=== PATIENT | male | born 1980 | race Caucasian/White ===

== ENCOUNTER 2017-07-03 16:11 | Inpatient (IN) | payer OTHER ==
[2017-07-03 17:16] VITALS: BMI 26.2
--- NOTE | 2017-07-03 20:26 | HP ---
CIWA Score - CIWA Score Nausea/Vomitin (vomiting x 3) Muscle Tremors: 4-Moderate,w/Arms Extend Anxiety: 4-Mod. Anxious/Guarded Agitation: 1-Slight > Activity Paroxysmal Sweats: No Perspiration Orientation: 1-Uncertain about Date Tacttile Disturbances: 0-None Auditory Disturbances: 0-None Visual Disturbances: 0-None Headache: 3-Moderate CIWA-Ar Total Score: 16 Admission ROS S - HPI Chief Complaint: Alcohol withdrawal symptoms Allergies/Adverse Reactions: Allergies Allergy/AdvReac Type Severity Reaction Status Date / Time No Known Allergies Allergy Verified 03/31/16 20:41 History of Present Illness: 36 years old male with a long history of alcohol dependence is seeking admission to detox. Patient has been to previous detox and reports a year of sobriety. Hr has medical history of gastritis, pancreatitis, arthritis and depression. He denies suicide attempt and suicidal ideation at this time. Exam Limitations: No Limitations - Ebola screening Have you traveled outside of the country in the last 21 days: No Have you had contact with anyone from an Ebola affected area: No Have you been sick,other than usual withdrawal symptoms: No Do you have a fever: No - Review of Systems Constitutional: Chills, Malaise, Night Sweats, Changes in sleep EENT: reports: Nose Congestion, Other (left eye blindness) Respiratory: reports: No Symptoms reported Cardiac: reports: No Symptoms Reported GI: reports: Diarrhea (x 8), Nausea, Poor Fluid Intake, Vomiting (x 3), Abdominal cramping : reports: No Symptoms Reported Musculoskeletal: reports: Back Pain, Muscle Pain, Muscle Weakness Integumentary: reports: Flushing Neuro: reports: Tingling, Tremors, Weakness Endocrine: reports: Flushing Hematology: reports: No Symptoms Reported Psychiatric: reports: Anxious Other Systems: Reviewed and Negative Patient History - Patient Medical History Hx Anemia: No Hx Asthma: No Hx Chronic Obstructive Pulmonary Disease (COPD): No Hx Cancer: No Hx Cardiac Disorders: No Hx Congestive Heart Failure: No Hx Hypertension: No HX Cerebrovascular Accident: No Hx Seizures: No Hx Diabetes: No Hx Gastrointestinal Disorders: Yes (pancreatitis, gartritits) Hx Liver Disease: No Hx Genitourinary Disorders: No Hx Sexually Transmitted Disorders: No Hx Renal Disease (ESRD): No Hx Thyroid Disease: No Hx Human Immunodeficiency Virus (HIV): No (Negative 2017) Hx Hepatitis C: No Hx Depression: Yes Hx Suicide Attempt: No (Denies suicidal and homicidal ideation at this time) Hx Bipolar Disorder: No Hx Schizophrenia: No Other Medical History: arthritis - hands, legs - Patient Surgical History Past Surgical History: No - PPD History Previous Implant?: Yes Documented Results: Negative w/o proof Implanted On Prior R Admission?: No PPD to be Administered?: Yes - Reproductive History Patient is a Female of Child Bearing Age (11 -55 yrs old): No (MALE) - Smoking Cessation Smoking history: Current every day smoker Have you smoked in the past 12 months: Yes Aproximately how many cigarettes per day: 6 Cigars Per Day: 0 Hx Chewing Tobacco Use: No Initiated information on smoking cessation: Yes 'Breaking Loose' booklet given: 07/03/17 - Substance & Tx. History Hx Alcohol Use: Yes Hx Substance Use: No Substance Use Type: Alcohol Hx Substance Use Treatment: Yes ([facility]) - Substances Abused Alcohol Route: Oral Frequency: Daily Amount used: 20 x 24oz. BEER Age of first use: 16 Date of Last Use: 07/03/17 Family Disease History - Family Disease History Family Disease History: Diabetes: Mother, CA: Father (Stomach - ), Other : Grandparent (grandfather-liver cirrhosis - ) Admission Physical Exam S - Vital Signs Vital Signs: Vital Signs - 24 hr 07/03/17 17:14 Temperature 98.9 F Pulse Rate 115 H Respiratory 18 Rate Blood Pressure 139/100 - Physical General Appearance: Yes: Moderate Distress, Tremorous, Irritable, Sweating, Anxious HEENTM: Yes: Nasal Congestion (left ear hearing loss), Other (left eye blindness ) Respiratory: Yes: Lungs Clear, Normal Breath Sounds, No Respiratory Distress Neck: Yes: Supple Breast: Yes: Breast Exam Deferred Cardiology: Yes: Regular Rhythm, Regular Rate Abdominal: Yes: Normal Bowel Sounds, Soft Genitourinary: Yes: Within Normal Limits Musculoskeletal: Yes: Back pain, Muscle Pain, Muscle weakness Extremities: Yes: Tremors Neurological: Yes: Alert, Normal Mood/Affect Integumentary: Yes: Dry Lymphatic: Yes: Within Normal Limits - Diagnostic (1) Gastritis Current Visit: Yes Status: Chronic Qualifiers: Chronicity: unspecified (2) Depression Current Visit: Yes Status: Chronic Qualifiers: Depression Type: unspecified Qualified Code(s): F32.9 - Major depressive disorder, single episode, unspecified (3) Pancreatitis Current Visit: Yes Status: Chronic Qualifiers: Chronicity: acute Pancreatitis type: alcohol induced (4) Alcohol dependence with uncomplicated withdrawal Current Visit: Yes Status: Chronic (5) Nicotine dependence Current Visit: Yes Status: Chronic Cleared for Admission [facility] - Detox or Rehab [facility] Level of Care: Medically Managed Detox Regimen/Protocol: Librium [facility] Breath Alcohol Content Breath Alcohol Content: 0.477 Urine Drug Screen - Results Drug Screen Negative: No Urine Drug Screen Results: BZO-Benzodiazepines
[2017-07-03] MEDS ORDERED: chlordiazePOXIDE HCL 25 MG CAPSULE PO PRN (21:47)
[2017-07-03] MEDS ORDERED: ACETAMINOPHEN 325 MG TABLET (FP) PO PRN (21:47)
[2017-07-03] MEDS ORDERED: guaiFENesin/D-METHORPHAN HB 10 ML UNIT-DOSE CUPS PO PRN (21:47)
[2017-07-03] MEDS ORDERED: MAGNESIUM CITRATE 300 ML BOTTLE PO PRN (21:47)
[2017-07-03] MEDS ORDERED: IBUPROFEN 400 MG TABLET (FP) PO PRN (21:47)
[2017-07-03] MEDS ORDERED: NICOTINE POLACRILEX 2 MG GUM BC PRN (21:47)
[2017-07-03] MEDS ORDERED: MENTHOL/PHENOL 1 EACH UD MM PRN (21:47)
[2017-07-03] MEDS ORDERED: P-EPHED 60MG/TRIPROLIDI 2.5MG TABLET PO PRN (21:47)
[2017-07-03] MEDS ORDERED: LOPERAMIDE HCL 2 MG CAPSULE PO PRN (21:47)
[2017-07-03] MEDS ORDERED: MAG HYDROX/AL HYDROX/SIMETH 30 ML UNIT-DOSE CUP PO PRN (21:47)
[2017-07-03] MEDS ORDERED: MAGNESIUM HYDROX 2400MG/30ML ORAL SUSPENSION 30 ML CUP PO PRN (21:47)
[2017-07-03] MEDS ORDERED: MELATONIN 5 MG TABLETS PO PRN (22:00)
[2017-07-03] MEDS: THIAMINE HCL 100 MG TABLET (FP) PO SCH (22:03)
[2017-07-03] MEDS: chlordiazePOXIDE HCL 25 MG CAPSULE PO SCH (22:03)
[2017-07-04 02:01] LABS: URINE APPEARANCE CLEAR; URINE BILIRUBIN NEGATIVE (<2.0 mg/dL); URINE BLOOD 1+ (NEGATIVE); URINE COLOR COLORLESS; URINE GLUCOSE (UA) NEGATIVE (NEGATIVE); URINE KETONE NEGATIVE (NEGATIVE); URINE LEUK ESTERASE NEGATIVE (NEGATIVE); URINE NITRITE NEGATIVE (NEGATIVE); URINE UROBILINOGEN NEGATIVE mg/dL (0.2-1.0)
[2017-07-04 02:09] LABS: URINE PROTEIN 1+ (NEGATIVE)
[2017-07-04 03:11] LABS: EPI CELLS FEW /HPF (FEW)
[2017-07-04 03:12] LABS: URINE MUCUS RARE
[2017-07-04] MEDS: chlordiazePOXIDE HCL 25 MG CAPSULE PO SCH ×5 (06:05→22:29)
[2017-07-04 10:11] LABS: HEMATOCRIT 43.4 % (35.4-49); HEMOGLOBIN 14.7 GM/dL (11.7-16.9); MCHC 33.9 g/dl (32.0-35.9); MEAN CELL VOLUME 97.5 fl (80-96); PLATELET COUNT 253 K/MM3 (134-434); RBC 4.45 M/mm3 (4.00-5.60); RDW 14.5 % (11.9-15.9); WHITE BLOOD COUNT 2.5 K/mm3 (4.0-10.0)
[2017-07-04] MEDS: NICOTINE 14 MG/24 HOURS TOPICAL PATCH TD SCH (10:14)
[2017-07-04] MEDS: PRENATAL VITAMINS W/ FOLIC ACID TABLET (FP) PO SCH (10:14)
[2017-07-04 10:19] LABS: ANION GAP 9 (8-16); BILIRUBIN,TOTAL 0.3 mg/dL (0.2-1.0); BLOOD UREA NITROGEN 7 mg/dL (7-18); CALCIUM 8.2 mg/dL (8.5-10.1); CHLORIDE 102 mmol/L (98-107); CO2 28 mmol/L (21-32); CREATININE 0.8 mg/dL (0.7-1.3); GLUCOSE,RANDOM 108 mg/dL (74-106); POTASSIUM 3.6 mmol/L (3.5-5.1); SGOT/AST 123 U/L (15-37); SGPT/ALT 77 U/L (12-78); SODIUM 139 mmol/L (136-145); TOT PROT 7.3 g/dl (6.4-8.2)
[2017-07-04 10:20] LABS: ALK PHOS 93 U/L (45-117)
[2017-07-04] MEDS ORDERED: ONDANSETRON *ODT* 4 MG TABLET SL PRN (10:56)
--- NOTE | 2017-07-04 10:56 | PN ---
S CIWA - CIWA Score Nausea/Vomitin Muscle Tremors: 3 Anxiety: 3 Agitation: 2 Paroxysmal Sweats: 3 Orientation: 4Disoriented Place/Person Tacttile Disturbances: 1-Very Mild Itch/Numbness Auditory Disturbances: 0-None Visual Disturbances: 0-None Headache: 0-None Present CIWA-Ar Total Score: 19 BHS Progress Note (SOAP) Subjective: Nausea, Diarrhea, Sweating, Stomach Cramping, Tremors, Interrupted Sleep, Anxious. Objective: PATIENT A & O X 2 (UNCERTAIN ABOUT CURRENT LOCATION), OBSERVED AMBULATING ON UNIT. NO ACUTE DISTRESS. 07/04/17 10:58 Vital Signs Temperature 96.1 F L 07/04/17 09:22 Pulse Rate 98 H 07/04/17 09:30 Respiratory Rate 22 07/04/17 09:30 Blood Pressure 104/65 07/04/17 09:22 O2 Sat by Pulse Oximetry (%) Laboratory Tests 07/03/17 07/04/17 07/04/17 22:00 07:00 07:00 WBC 2.5 L D RBC 4.45 Hgb 14.7 Hct 43.4 MCV 97.5 H MCH 33.0 MCHC 33.9 RDW 14.5 Plt Count 253 MPV 7.0 L Sodium 139 Potassium 3.6 Chloride 102 Carbon Dioxide 28 Anion Gap 9 BUN 7 Creatinine 0.8 Creat Clearance w eGFR > 60 Random Glucose 108 H D Calcium 8.2 L Total Bilirubin 0.3 D AST 123 H D ALT 77 D Alkaline Phosphatase 93 D Total Protein 7.3 Albumin 4.0 Urine Color Colorless Urine Appearance Clear Urine pH 6.0 Ur Specific [place] 1.004 Urine Protein 1+ H Urine Glucose (UA) Negative Urine Ketones Negative Urine Blood 1+ H Urine Nitrite Negative Urine Bilirubin Negative Urine Urobilinogen Negative Ur Leukocyte Esterase Negative Urine WBC (Auto) 0 Urine RBC (Auto) 3-5 Ur Epithelial Cells Few Urine Mucus Rare LABS NOTED. RPR, HIV AB RESULTS PENDING. 07/04/17 11:00 Assessment: 07/04/17 10:59 WITHDRAWAL SYMPTOMS. Plan: CONTINUE DETOX. INCREASE DAILY PO FLUID INTAKE.
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
--- NOTE | 2017-07-04 16:49 | EKG ---
Test Reason : Blood Pressure : / mmHG Vent. Rate : 095 BPM Atrial Rate : 095 BPM P-R Int : 164 ms QRS Dur : 092 ms QT Int : 350 ms P-R-T Axes : 063 072 041 degrees QTc Int : 439 ms NORMAL SINUS RHYTHM NORMAL ECG WHEN COMPARED WITH ECG OF 01-APR-2016 04:18, NO SIGNIFICANT CHANGE WAS FOUND Confirmed by MD Florentino Edward ([id number]) on 07/04/2017 4:49:20 PM Referred By: Confirmed By:Reid Florentino MD
[2017-07-04] MEDS: THIAMINE HCL 100 MG TABLET (FP) PO SCH (22:29)
[2017-07-04] MEDS: traZODone HCL 50 MG TABLET (FP) PO SCH (22:30)
[2017-07-05] MEDS: chlordiazePOXIDE HCL 25 MG CAPSULE PO SCH ×3 (05:12→17:27)
[2017-07-05] MEDS: PRENATAL VITAMINS W/ FOLIC ACID TABLET (FP) PO SCH (10:21)
[2017-07-05] MEDS: NICOTINE 14 MG/24 HOURS TOPICAL PATCH TD SCH (10:21)
[2017-07-05] MEDS ORDERED: CYCLOBENZAPRINE HCL 10 MG TABLET (FP) PO PRN (10:25)
--- NOTE | 2017-07-05 10:33 | PN ---
[facility] CIWA - CIWA Score Nausea/Vomitin-No Nausea/No Vomiting Muscle Tremors: 4-Moderate,w/Arms Extend Anxiety: 3 Agitation: 1-Slight > Activity Paroxysmal Sweats: 3 Orientation: 0-Oriented Tacttile Disturbances: 2-Mild Itch/Numbness/Burn Auditory Disturbances: 0-None Visual Disturbances: 2-Mild Sensitivity Headache: 0-None Present CIWA-Ar Total Score: 15 S Progress Note (SOAP) Subjective: Body Aches, Tremors, Fatigue, H/A, Anxious. Objective: PATIENT A & O X 3, OBSERVED AMBULATING ON UNIT. NO ACUTE DISTRESS. 07/05/17 10:29 Vital Signs Temperature 98.5 F 07/05/17 09:22 Pulse Rate 101 H 07/05/17 09:22 Respiratory Rate 20 07/05/17 09:22 Blood Pressure 118/77 07/05/17 09:22 O2 Sat by Pulse Oximetry (%) Laboratory Tests 07/03/17 07/04/17 07/04/17 22:00 07:00 07:00 WBC 2.5 L D RBC 4.45 Hgb 14.7 Hct 43.4 MCV 97.5 H MCH 33.0 MCHC 33.9 RDW 14.5 Plt Count 253 MPV 7.0 L Sodium Potassium Chloride Carbon Dioxide Anion Gap BUN Creatinine Creat Clearance w eGFR Random Glucose Calcium Total Bilirubin AST ALT Alkaline Phosphatase Total Protein Albumin Urine Color Colorless Urine Appearance Clear Urine pH 6.0 Ur Specific [place] 1.004 Urine Protein 1+ H Urine Glucose (UA) Negative Urine Ketones Negative Urine Blood 1+ H Urine Nitrite Negative Urine Bilirubin Negative Urine Urobilinogen Negative Ur Leukocyte Esterase Negative Urine WBC (Auto) 0 Urine RBC (Auto) 3-5 Ur Epithelial Cells Few Urine Mucus Rare RPR Titer HIV 1&2 Antibody Screen Negative HIV P24 Antigen Negative 07/04/17 07/04/17 07:00 07:00 WBC RBC Hgb Hct MCV MCH MCHC RDW Plt Count MPV Sodium 139 Potassium 3.6 Chloride 102 Carbon Dioxide 28 Anion Gap 9 BUN 7 Creatinine 0.8 Creat Clearance w eGFR > 60 Random Glucose 108 H D Calcium 8.2 L Total Bilirubin 0.3 D AST 123 H D ALT 77 D Alkaline Phosphatase 93 D Total Protein 7.3 Albumin 4.0 Urine Color Urine Appearance Urine pH Ur Specific [place] Urine Protein Urine Glucose (UA) Urine Ketones Urine Blood Urine Nitrite Urine Bilirubin Urine Urobilinogen Ur Leukocyte Esterase Urine WBC (Auto) Urine RBC (Auto) Ur Epithelial Cells Urine Mucus RPR Titer Nonreactive HIV 1&2 Antibody Screen HIV P24 Antigen LABS NOTED. Assessment: 07/05/17 10:30 WITHDRAWAL SYMPTOMS. Plan: CONTINUE DETOX. PRN FLEXERIL FOR BODY ACHES / MUSCLE SPASMS. INCREASE DAILY PO FLUID INTAKE.
[2017-07-05] MEDS: traZODone HCL 50 MG TABLET (FP) PO SCH (22:26)
[2017-07-05] MEDS: THIAMINE HCL 100 MG TABLET (FP) PO SCH (22:26)
[2017-07-05] MEDS: chlordiazePOXIDE 5 MG CAPSULE PO SCH (22:27)
[2017-07-06] MEDS: chlordiazePOXIDE 5 MG CAPSULE PO SCH ×3 (05:13→17:18)
[2017-07-06] MEDS: PRENATAL VITAMINS W/ FOLIC ACID TABLET (FP) PO SCH (10:15)
[2017-07-06] MEDS: NICOTINE 14 MG/24 HOURS TOPICAL PATCH TD SCH (10:16)
--- NOTE | 2017-07-06 16:48 | PN ---
B[facility] Progress Note (SOAP) Subjective: Diarrhea, Fatigue, Tremors, Anxious. Objective: PATIENT A & O X 3. NO ACUTE DISTRESS. 07/06/17 16:46 Vital Signs Temperature 96.8 F L 07/06/17 13:25 Pulse Rate 116 H 07/06/17 13:25 Respiratory Rate 20 07/06/17 13:25 Blood Pressure 141/84 07/06/17 13:25 O2 Sat by Pulse Oximetry (%) Laboratory Tests 07/03/17 07/04/17 07/04/17 22:00 07:00 07:00 WBC 2.5 L D RBC 4.45 Hgb 14.7 Hct 43.4 MCV 97.5 H MCH 33.0 MCHC 33.9 RDW 14.5 Plt Count 253 MPV 7.0 L Sodium Potassium Chloride Carbon Dioxide Anion Gap BUN Creatinine Creat Clearance w eGFR Random Glucose Calcium Total Bilirubin AST ALT Alkaline Phosphatase Total Protein Albumin Urine Color Colorless Urine Appearance Clear Urine pH 6.0 Ur Specific [place] 1.004 Urine Protein 1+ H Urine Glucose (UA) Negative Urine Ketones Negative Urine Blood 1+ H Urine Nitrite Negative Urine Bilirubin Negative Urine Urobilinogen Negative Ur Leukocyte Esterase Negative Urine WBC (Auto) 0 Urine RBC (Auto) 3-5 Ur Epithelial Cells Few Urine Mucus Rare RPR Titer HIV 1&2 Antibody Screen Negative HIV P24 Antigen Negative 07/04/17 07/04/17 07:00 07:00 WBC RBC Hgb Hct MCV MCH MCHC RDW Plt Count MPV Sodium 139 Potassium 3.6 Chloride 102 Carbon Dioxide 28 Anion Gap 9 BUN 7 Creatinine 0.8 Creat Clearance w eGFR > 60 Random Glucose 108 H D Calcium 8.2 L Total Bilirubin 0.3 D AST 123 H D ALT 77 D Alkaline Phosphatase 93 D Total Protein 7.3 Albumin 4.0 Urine Color Urine Appearance Urine pH Ur Specific [place] Urine Protein Urine Glucose (UA) Urine Ketones Urine Blood Urine Nitrite Urine Bilirubin Urine Urobilinogen Ur Leukocyte Esterase Urine WBC (Auto) Urine RBC (Auto) Ur Epithelial Cells Urine Mucus RPR Titer Nonreactive HIV 1&2 Antibody Screen HIV P24 Antigen LABS NOTED. Assessment: 07/06/17 16:46 WITHDRAWAL SYMPTOMS. Plan: CONTINUE DETOX. PRN IMMODIUM FOR DIARRHEA. INCREASE DAILY PO FLUID INTAKE.
[2017-07-06] MEDS ORDERED: cloNIDine HCL 0.1 MG TABLET PO SCH ×2 (17:42→22:00)
[2017-07-06] MEDS: traZODone HCL 50 MG TABLET (FP) PO SCH (22:38)
[2017-07-06] MEDS: THIAMINE HCL 100 MG TABLET (FP) PO SCH (22:39)
[2017-07-06] MEDS: chlordiazePOXIDE HCL 10 MG CAPSULE PO SCH (22:39)
[2017-07-07] MEDS: chlordiazePOXIDE HCL 10 MG CAPSULE PO SCH (05:23)
[2017-07-07 09:17] VITALS: BP 144/94; PULSE 97; TEMP 96.4
--- NOTE | 2017-07-07 16:10 | PN ---
S Progress Note (SOAP) Subjective: Patient denies current detox symptoms and reports that he feels well overall. Objective: PATIENT A & O X 3, OBSERVED AMBULATING ON UNIT. NO ACUTE DISTRESS. 07/07/17 16:05 Vital Signs Temperature 96.4 F L 07/07/17 09:15 Pulse Rate 97 H 07/07/17 09:15 Respiratory Rate 20 07/07/17 09:15 Blood Pressure 144/94 07/07/17 09:15 O2 Sat by Pulse Oximetry (%) Laboratory Tests 07/03/17 07/04/17 07/04/17 22:00 07:00 07:00 WBC 2.5 L D RBC 4.45 Hgb 14.7 Hct 43.4 MCV 97.5 H MCH 33.0 MCHC 33.9 RDW 14.5 Plt Count 253 MPV 7.0 L Sodium Potassium Chloride Carbon Dioxide Anion Gap BUN Creatinine Creat Clearance w eGFR Random Glucose Calcium Total Bilirubin AST ALT Alkaline Phosphatase Total Protein Albumin Urine Color Colorless Urine Appearance Clear Urine pH 6.0 Ur Specific [place] 1.004 Urine Protein 1+ H Urine Glucose (UA) Negative Urine Ketones Negative Urine Blood 1+ H Urine Nitrite Negative Urine Bilirubin Negative Urine Urobilinogen Negative Ur Leukocyte Esterase Negative Urine WBC (Auto) 0 Urine RBC (Auto) 3-5 Ur Epithelial Cells Few Urine Mucus Rare RPR Titer HIV 1&2 Antibody Screen Negative HIV P24 Antigen Negative 07/04/17 07/04/17 07:00 07:00 WBC RBC Hgb Hct MCV MCH MCHC RDW Plt Count MPV Sodium 139 Potassium 3.6 Chloride 102 Carbon Dioxide 28 Anion Gap 9 BUN 7 Creatinine 0.8 Creat Clearance w eGFR > 60 Random Glucose 108 H D Calcium 8.2 L Total Bilirubin 0.3 D AST 123 H D ALT 77 D Alkaline Phosphatase 93 D Total Protein 7.3 Albumin 4.0 Urine Color Urine Appearance Urine pH Ur Specific [place] Urine Protein Urine Glucose (UA) Urine Ketones Urine Blood Urine Nitrite Urine Bilirubin Urine Urobilinogen Ur Leukocyte Esterase Urine WBC (Auto) Urine RBC (Auto) Ur Epithelial Cells Urine Mucus RPR Titer Nonreactive HIV 1&2 Antibody Screen HIV P24 Antigen LABS NOTED. Assessment: 07/07/17 16:06 COMPLETION OF DETOX REGIMEN. Plan: PATIENT SCHEDULED FOR DISCHARGE FROM DETOX TODAY. PATIENT SCHEDULED TO GO [facility] ([place] FOR AFTERCARE.
--- NOTE | 2017-07-07 16:16 | DS ---
[facility] Detox Discharge Summary Admission Date: 07/03/17 Discharge Date: 07/07/17 - History Present History: Alcohol Dependence Additional Comments: PATIENT GOING TO [facility] ([place] FOR AFTERCARE. PATIENT WAS DISCHARGED FROM DETOX UNIT IN STABLE MEDICAL CONDITION. Pertinent Past History: History of Gastritis, History of Pancreatitis, Nicotine Dependence, Insomnia, Depression. - Physical Exam Results Vital Signs: Vital Signs Temperature 96.4 F L 07/07/17 09:15 Pulse Rate 97 H 07/07/17 09:15 Respiratory Rate 20 07/07/17 09:15 Blood Pressure 144/94 07/07/17 09:15 O2 Sat by Pulse Oximetry (%) Pertinent Admission Physical Exam Findings: WITHDRAWAL SYMPTOMS. Laboratory Tests 07/03/17 07/04/17 07/04/17 22:00 07:00 07:00 WBC 2.5 L D RBC 4.45 Hgb 14.7 Hct 43.4 MCV 97.5 H MCH 33.0 MCHC 33.9 RDW 14.5 Plt Count 253 MPV 7.0 L Sodium Potassium Chloride Carbon Dioxide Anion Gap BUN Creatinine Creat Clearance w eGFR Random Glucose Calcium Total Bilirubin AST ALT Alkaline Phosphatase Total Protein Albumin Urine Color Colorless Urine Appearance Clear Urine pH 6.0 Ur Specific [place] 1.004 Urine Protein 1+ H Urine Glucose (UA) Negative Urine Ketones Negative Urine Blood 1+ H Urine Nitrite Negative Urine Bilirubin Negative Urine Urobilinogen Negative Ur Leukocyte Esterase Negative Urine WBC (Auto) 0 Urine RBC (Auto) 3-5 Ur Epithelial Cells Few Urine Mucus Rare RPR Titer HIV 1&2 Antibody Screen Negative HIV P24 Antigen Negative 07/04/17 07/04/17 07:00 07:00 WBC RBC Hgb Hct MCV MCH MCHC RDW Plt Count MPV Sodium 139 Potassium 3.6 Chloride 102 Carbon Dioxide 28 Anion Gap 9 BUN 7 Creatinine 0.8 Creat Clearance w eGFR > 60 Random Glucose 108 H D Calcium 8.2 L Total Bilirubin 0.3 D AST 123 H D ALT 77 D Alkaline Phosphatase 93 D Total Protein 7.3 Albumin 4.0 Urine Color Urine Appearance Urine pH Ur Specific [place] Urine Protein Urine Glucose (UA) Urine Ketones Urine Blood Urine Nitrite Urine Bilirubin Urine Urobilinogen Ur Leukocyte Esterase Urine WBC (Auto) Urine RBC (Auto) Ur Epithelial Cells Urine Mucus RPR Titer Nonreactive HIV 1&2 Antibody Screen HIV P24 Antigen LABS NOTED. - Treatment Hospital Course: Detox Protocol Followed, Detoxed Safely, Responded well, Discharged Condition Good Patient has Accepted a Rehab Referral to: PT. GOING TO [facility] ([place] FOR AFTERCARE. - Medication Discharge Medications: Ambulatory Orders NK [No Known Home Medication] 03/31/16 - Diagnosis (1) Alcohol dependence with uncomplicated withdrawal Status: Acute (2) Gastritis Status: Chronic Qualifiers: Gastritis type: unspecified gastritis Chronicity: unspecified Gastritis bleeding: presence of bleeding unspecified Qualified Code(s): K29.70 - Gastritis, unspecified, without bleeding (3) Pancreatitis Status: Chronic Qualifiers: Chronicity: acute Pancreatitis type: alcohol induced Acute pancreatitis complication: unspecified Qualified Code(s): K85.20 - Alcohol induced acute pancreatitis without necrosis or infection (4) Depression Status: Chronic Qualifiers: Depression Type: unspecified Qualified Code(s): F32.9 - Major depressive disorder, single episode, unspecified (5) Insomnia Status: Acute Qualifiers: Insomnia type: unspecified Qualified Code(s): G47.00 - Insomnia, unspecified (6) Nicotine dependence Status: Acute Qualifiers: Nicotine product type: cigarettes Substance use status: uncomplicated Qualified Code(s): F17.210 - Nicotine dependence, cigarettes, uncomplicated - AMA Did Patient Leave Against Medical Advice: No
== END 2017-07-07 09:16 | disposition home or self-care (01) | DRG 775 ==
LOC: YASAS 16:11 → Y3N 17:59
PROVIDERS: ADMIT Internal Medicine; ATTEND Internal Medicine
PROC: HZ2ZZZZ Detoxification Services for Substance Abuse Treatment (ICD-10-PCS; principal; 2017-07-03)
DX: F10.230 Alcohol dependence with withdrawal, uncomplicated (principal); F17.210 Nicotine dependence, cigarettes, uncomplicated; F32.9 Major depressive disorder, single episode, unspecified; G47.00 Insomnia, unspecified; K85.20 Alcohol induced acute pancreatitis without necrosis or infection; K29.70 Gastritis, unspecified, without bleeding; Z59.0 Homelessness
CPT/HCPCS: 36415; 80053; 81003; 81015; 85027; 86593; 87389; 93005; 93010; Q0162

== ENCOUNTER 2018-08-27 08:21 | Inpatient (IN) | payer OTHER ==
[2018-08-27 09:47] VITALS: BMI 27.6
--- NOTE | 2018-08-27 10:28 | HP ---
CIWA Score Nausea/Vomitin Muscle Tremors: 2 Anxiety: 2 Agitation: 2 Paroxysmal Sweats: 1-Minimal Palms Moist Orientation: 0-Oriented Tacttile Disturbances: 1-Very Mild Itch/Numbness Auditory Disturbances: 1-Very Mild Visual Disturbances: 0-None Headache: 2-Mild CIWA-Ar Total Score: 13 - Admission Criteria OASAS Guidelines: Admission for Medically Managed Detox: Requires at least one of the followin. CIWA greater than 12 2. Seizures within the past 24 hours 3. Delirium tremens within the past 24 hours 4. Hallucinations within the past 24 hours 5. Acute intervention needed for co occurring medical disorder 6. Acute intervention needed for co occurring psychiatric disorder 7. Severe withdrawal that cannot be handled at a lower level of care (continued vomiting, continued diarrhea, abnormal vital signs) requiring intravenous medication and/or fluids 8. Admission ROS [facility] - HPI Chief Complaint: i need help to stop drinking alcohol Allergies/Adverse Reactions: Allergies Allergy/AdvReac Type Severity Reaction Status Date / Time No Known Allergies Allergy Verified 03/31/16 20:41 History of Present Illness: this 38 years old male with alcohol dependence,seeking detox,withdrawal symptom, [facility], history of pancreatitis in the past last detox Pw 07/03/17 to 07/07/17 low back pain longest sobriety 4 months plan for out patient program after detox blindness left eye post trauma since 12/14 - Ebola screening Have you traveled outside of the country in the last 21 days: No (N) Have you had contact with anyone from an Ebola affected area: No Do you have a fever: No - Review of Systems Constitutional: Loss of Appetite, Malaise, Night Sweats, Changes in sleep, Weakness EENT: reports: Nose Congestion, Other (blindnes sof left eye post trauma since 12/24) Respiratory: reports: No Symptoms reported Cardiac: reports: No Symptoms Reported GI: reports: Diarrhea, Nausea, Vomiting, Abdominal cramping : reports: No Symptoms Reported Musculoskeletal: reports: Back Pain, Muscle Pain Integumentary: reports: Dryness Neuro: reports: Headache, Tremors Endocrine: reports: No Symptoms Reported Hematology: reports: No Symptoms Reported Psychiatric: reports: No Sypmtoms Reported, Judgement Intact, Mood/Affect Appropiate, Orientated x3 Other Systems: Reviewed and Negative Patient History - Patient Medical History Hx Anemia: No Hx Asthma: No Hx Chronic Obstructive Pulmonary Disease (COPD): No Hx Cancer: No Hx Cardiac Disorders: No Hx Congestive Heart Failure: No Hx Hypertension: No HX Cerebrovascular Accident: No Hx Seizures: No Hx Diabetes: No Hx Gastrointestinal Disorders: Yes (pancreatitis, gartritits) Hx Liver Disease: No Hx Genitourinary Disorders: No Hx Sexually Transmitted Disorders: No Hx Renal Disease (ESRD): No Hx Thyroid Disease: No Hx Human Immunodeficiency Virus (HIV): No (04/28 negative ) Hx Hepatitis C: No Hx Depression: Yes Hx Suicide Attempt: No (Denies suicidal and homicidal ideation at this time) Hx Bipolar Disorder: No Hx Schizophrenia: No Other Medical History: no suicidal,no homicidal - Patient Surgical History Past Surgical History: No - PPD History Previous Implant?: Yes Documented Results: Negative w/o proof Implanted On Prior [facility] Admission?: Yes Date: 07/05/17 PPD to be Administered?: Yes - Smoking Cessation Smoking history: Current every day smoker Have you smoked in the past 12 months: No Aproximately how many cigarettes per day: 6 If you are a former smoker, when did you quit?: 2016 Cigars Per Day: 0 Hx Chewing Tobacco Use: No Initiated information on smoking cessation: Yes 'Breaking Loose' booklet given: 08/27/18 - Substance & Tx. History Hx Alcohol Use: Yes Hx Substance Use: No Substance Use Type: Alcohol Hx Substance Use Treatment: Yes - Substances abused Alcohol Substance route: Oral Frequency: Daily Amount used: 10-12 beers of 24 OZS Age of first use: 16 Date of last use: 08/27/18 Family Disease History - Family Disease History Family Disease History: Diabetes: Mother, CA: Father (Stomach - ), Other : Grandparent (grandfather-liver cirrhosis - ) Admission Physical Exam BHS - Vital Signs Vital Signs: Vital Signs - 24 hr 08/27/18 08/27/18 09:20 10:14 Temperature 97.3 F L 97.3 F L Pulse Rate 85 85 Respiratory 18 18 Rate Blood Pressure 128/74 128/74 - Physical General Appearance: Yes: Moderate Distress, Tremorous, Irritable, Sweating, Anxious HEENTM: Yes: Normal ENT Inspection, JEFRY, Pharynx Normal Respiratory: Yes: Lungs Clear, Normal Breath Sounds, No Respiratory Distress Neck: Yes: Within Normal Limits, Supple, Trachea in good position Breast: Yes: Within Normal Limits Cardiology: Yes: Within Normal Limits, Regular Rhythm, Regular Rate, S1, S2 Abdominal: Yes: Within Normal Limits, Normal Bowel Sounds, Non Tender, Flat, Soft Genitourinary: Yes: Within Normal Limits Back: Yes: Within Normal Limits Musculoskeletal: Yes: full range of Motion, Back pain, Muscle Pain Extremities: Yes: Tremors Neurological: Yes: Within Normal Limits, graphite grinder II-XII NML intact, Fully Oriented, Alert, Motor Strength 5/5 Integumentary: Yes: Clammy Lymphatic: Yes: Within Normal Limits - Diagnostic (1) Alcohol dependence with uncomplicated withdrawal Current Visit: No Status: Acute (2) History of pancreatitis Current Visit: Yes Status: Acute (3) Gastritis Current Visit: No Status: Chronic Qualifiers: Gastritis type: unspecified gastritis Chronicity: unspecified Gastritis bleeding: presence of bleeding unspecified Qualified Code(s): K29.70 - Gastritis, unspecified, without bleeding (4) Arthritis Current Visit: Yes Status: Acute (5) Low back pain Current Visit: Yes Status: Acute Cleared for Admission [facility] - Detox or Rehab [facility] Level of Care: Medically Managed Detox Regimen/Protocol: Librium Breathalyzer - Breathalyzer Breathalyzer: 0 Urine Drug Screen - Test Device Lot number: [id number] Expiration date: 05/10/20 - Control Is test valid?: Yes - Results Drug screen NEGATIVE: No Urine drug screen results: MOP-Opiates, BZO-Benzodiazepines Inpatient Rehab Admission - Rehab Decision to Admit Inpatient rehab admission?: No
[2018-08-27] MEDS ORDERED: BISMUTH SUBSALICYLATE 262 MG/15 ML BTL PO PRN (10:41)
[2018-08-27] MEDS ORDERED: MAGNESIUM HYDROX 2400MG/30ML ORAL SUSPENSION 30 ML CUP PO PRN (10:41)
[2018-08-27] MEDS ORDERED: hydrOXYzine PAMOATE 25 MG CAPSULE (FP) PO PRN (10:41)
[2018-08-27] MEDS ORDERED: chlordiazePOXIDE HCL 25 MG CAPSULE PO PRN (10:41)
[2018-08-27] MEDS ORDERED: ACETAMINOPHEN 325 MG TABLET (FP) PO PRN ×2 (10:41)
[2018-08-27] MEDS ORDERED: MENTHOL/PHENOL 1 EACH UD MM PRN (10:41)
[2018-08-27] MEDS ORDERED: MAGNESIUM CITRATE 300 ML BOTTLE PO PRN (10:41)
[2018-08-27 14:47] LABS: HEMATOCRIT 43.7 % (35.4-49); HEMOGLOBIN 14.5 GM/dL (11.7-16.9); MCH 30.7 pg (25.7-33.7); MCHC 33.3 g/dl (32.0-35.9); MEAN CELL VOLUME 92.2 fl (80-96); MEAN PLT VOLUME 7.6 fl (7.5-11.1); PLATELET COUNT 261 K/MM3 (134-434); RBC 4.74 M/mm3 (4.00-5.60); RDW 14.2 % (11.9-15.9); WHITE BLOOD COUNT 9.2 K/mm3 (4.0-10.0)
[2018-08-27 15:04] LABS: BILIRUBIN,TOTAL 1.2 mg/dL (0.2-1); CALCIUM 8.7 mg/dL (8.5-10.1); CREATININE 1.1 mg/dL (0.55-1.3); POTASSIUM 4.4 mmol/L (3.5-5.1); TOT PROT 7.4 g/dl (6.4-8.2)
[2018-08-27] MEDS: chlordiazePOXIDE HCL 25 MG CAPSULE PO SCH ×2 (17:44→22:10)
[2018-08-27 18:14] LABS: EPI CELLS 0.3 /HPF (0-5/HPF); HYALINE CASTS 1 /lpf (0-8); PH,URINE 6.5 (5.0-8.0); URINE APPEARANCE CLEAR; URINE BACTERIA 1.5 /hpf (NEGATIVE); URINE BILIRUBIN NEGATIVE (NEGATIVE); URINE COLOR YELLOW; URINE GLUCOSE (UA) NEGATIVE (NEGATIVE); URINE KETONE NEGATIVE (NEGATIVE); URINE LEUK ESTERASE NEGATIVE (NEGATIVE); URINE NITRITE NEGATIVE (NEGATIVE); URINE PROTEIN 2+ (NEGATIVE); URINE RBC 1 /hpf (0-4); URINE UROBILINOGEN 0.2 mg/dL (0.2-1.0); URINE WBC 1 /hpf (0-5)
--- NOTE | 2018-08-27 21:16 | PN ---
BHS Progress Note Note: pt noted to have high BP this ludivina: 160/99. Pt getting librium for alcohol detox protocol. Vital Signs - 24 hr 08/27/18 08/27/18 08/27/18 09:20 10:14 13:18 Temperature 97.3 F L 97.3 F L 97.3 F L Pulse Rate 85 85 70 Respiratory 18 18 18 Rate Blood Pressure 128/74 128/74 129/85 08/27/18 08/27/18 17:47 21:09 Temperature 98.9 F Pulse Rate 77 Respiratory 18 Rate Blood Pressure 127/87 161/99 BP has been good in previously. Will place a prn Clonidine order for withdrawal Sx, anxiety
[2018-08-27] MEDS ORDERED: cloNIDine HCL 0.1 MG TABLET PO PRN (21:17)
[2018-08-27] MEDS: RANITIDINE HCL 150 MG TABLET (FP) PO SCH (22:10)
[2018-08-27] MEDS: THIAMINE HCL 100 MG TABLET (FP) PO SCH (22:10)
[2018-08-27] MEDS: MELATONIN 5 MG TABLETS PO PRN (22:13)
[2018-08-28] MEDS: chlordiazePOXIDE HCL 25 MG CAPSULE PO SCH ×2 (05:47→10:22)
[2018-08-28] MEDS: METHOCARBAMOL 500 MG TABLET PO PRN (05:48)
[2018-08-28] MEDS: MAG HYDROX/AL HYDROX/SIMETH 30 ML UNIT-DOSE CUP PO PRN ×2 (06:03→23:54)
[2018-08-28] MEDS: RANITIDINE HCL 150 MG TABLET (FP) PO SCH ×2 (10:19→22:15)
[2018-08-28] MEDS: PRENATAL VITAMINS W/ FOLIC ACID TABLET (FP) PO SCH (10:23)
[2018-08-28] MEDS ORDERED: cloNIDine HCL 0.1 MG TABLET PO PRN (10:39)
--- NOTE | 2018-08-28 10:41 | PN ---
[facility] CIWA - CIWA Score Nausea/Vomitin-Mild Nausea/No Vomiting Muscle Tremors: 3 Anxiety: 3 Agitation: 2 Paroxysmal Sweats: 1-Minimal Palms Moist Orientation: 1-Uncertain about Date Tacttile Disturbances: 0-None Auditory Disturbances: 0-None Visual Disturbances: 0-None Headache: 1-Very Mild CIWA-Ar Total Score: 12 S Progress Note (SOAP) Subjective: long history of hypertension treated with amlodipine order amlodipine 5 mg po bid clonidine 0.1 mg po prn for bp elevation Objective: 08/28/18 10:39 Vital Signs Temperature 98.4 F 08/28/18 09:13 Pulse Rate 76 08/28/18 09:13 Respiratory Rate 18 08/28/18 09:13 Blood Pressure 123/77 08/28/18 09:13 O2 Sat by Pulse Oximetry (%) Laboratory Last Values WBC 9.2 K/mm3 (4.0-10.0) 08/27/18 10:30 RBC 4.74 M/mm3 (4.00-5.60) 08/27/18 10:30 Hgb 14.5 GM/dL (11.7-16.9) 08/27/18 10:30 Hct 43.7 % (35.4-49) 08/27/18 10:30 MCV 92.2 fl (80-96) 08/27/18 10:30 MCH 30.7 pg (25.7-33.7) 08/27/18 10:30 MCHC 33.3 g/dl (32.0-35.9) 08/27/18 10:30 RDW 14.2 % (11.9-15.9) 08/27/18 10:30 Plt Count 261 K/MM3 (134-434) 08/27/18 10:30 MPV 7.6 fl (7.5-11.1) 08/27/18 10:30 Sodium 136 mmol/L (136-145) 08/27/18 10:30 Potassium 4.4 mmol/L (3.5-5.1) 08/27/18 10:30 Chloride 102 mmol/L (98-107) 08/27/18 10:30 Carbon Dioxide 24 mmol/L (21-32) 08/27/18 10:30 Anion Gap 9 MMOL/L (8-16) 08/27/18 10:30 BUN 16 mg/dL (7-18) 08/27/18 10:30 Creatinine 1.1 mg/dL (0.55-1.3) 08/27/18 10:30 Est GFR (CKD-EPI)AfAm 99.57 08/27/18 10:30 Est GFR (CKD-EPI)NonAf 85.91 08/27/18 10:30 Random Glucose 106 mg/dL (74-106) 08/27/18 10:30 Calcium 8.7 mg/dL (8.5-10.1) 08/27/18 10:30 Total Bilirubin 1.2 mg/dL (0.2-1) H 08/27/18 10:30 AST 152 U/L (15-37) H 08/27/18 10:30 ALT 113 U/L (13-61) H 08/27/18 10:30 Alkaline Phosphatase 92 U/L (45-117) 08/27/18 10:30 Total Protein 7.4 g/dl (6.4-8.2) 08/27/18 10:30 Albumin 4.0 g/dl (3.4-5.0) 08/27/18 10:30 Urine Color Yellow 08/27/18 15:28 Urine Appearance Clear 08/27/18 15:28 Urine pH 6.5 (5.0-8.0) 08/27/18 15:28 Ur Specific [place] 1.014 (1.010-1.035) 08/27/18 15:28 Urine Protein 2+ (NEGATIVE) H 08/27/18 15:28 Urine Glucose (UA) Negative (NEGATIVE) 08/27/18 15:28 Urine Ketones Negative (NEGATIVE) 08/27/18 15:28 Urine Blood Negative (NEGATIVE) 08/27/18 15:28 Urine Nitrite Negative (NEGATIVE) 08/27/18 15:28 Urine Bilirubin Negative (NEGATIVE) 08/27/18 15:28 Urine Urobilinogen 0.2 mg/dL (0.2-1.0) 08/27/18 15:28 Ur Leukocyte Esterase Negative (NEGATIVE) 08/27/18 15:28 Urine WBC (Auto) 1 /hpf (0-5) 08/27/18 15:28 Urine RBC (Auto) 1 /hpf (0-4) 08/27/18 15:28 Urine Casts (Auto) 1 /lpf (0-8) 08/27/18 15:28 U Epithel Cells (Auto) 0.3 /HPF (0-5/HPF) 08/27/18 15:28 Urine Bacteria (Auto) 1.5 /hpf (NEGATIVE) 08/27/18 15:28 RPR Titer Nonreactive (NONREACTIVE) 08/27/18 10:30 HIV 1&2 Antibody Screen Negative 08/27/18 10:30 HIV P24 Antigen Negative 08/27/18 10:30 lab noted Assessment: 08/28/18 10:41 alcohol withdrawal sx Plan: continue detox
[2018-08-28] MEDS ORDERED: LORazepam 1 MG TABLET PO PRN (10:57)
[2018-08-28] MEDS: LORazepam 1 MG TABLET PO SCH ×2 (13:27→22:19)
[2018-08-28] MEDS: IBUPROFEN 400 MG TABLET (FP) PO PRN (13:37)
[2018-08-28] MEDS ORDERED: chlordiazePOXIDE HCL 25 MG CAPSULE PO SCH (17:00)
[2018-08-28] MEDS: THIAMINE HCL 100 MG TABLET (FP) PO SCH (22:15)
[2018-08-28] MEDS: amLODIPine BESYLATE 5 MG TABLET (FP) PO SCH (22:16)
[2018-08-28] MEDS: MELATONIN 5 MG TABLETS PO PRN (22:19)
[2018-08-29] MEDS: IBUPROFEN 400 MG TABLET (FP) PO PRN (01:30)
[2018-08-29] MEDS: LORazepam 1 MG TABLET PO SCH ×3 (05:28→17:29)
[2018-08-29] MEDS ORDERED: amLODIPine BESYLATE 10 MG TABLET (FP) PO SCH (10:00)
[2018-08-29] MEDS: amLODIPine BESYLATE 5 MG TABLET (FP) PO SCH ×2 (10:27→22:46)
[2018-08-29] MEDS: PRENATAL VITAMINS W/ FOLIC ACID TABLET (FP) PO SCH (10:27)
[2018-08-29] MEDS: RANITIDINE HCL 150 MG TABLET (FP) PO SCH ×2 (10:27→22:46)
[2018-08-29] MEDS: MAG HYDROX/AL HYDROX/SIMETH 30 ML UNIT-DOSE CUP PO PRN (11:11)
--- NOTE | 2018-08-29 11:19 | PN ---
[facility] CIWA - CIWA Score Nausea/Vomitin-Mild Nausea/No Vomiting Muscle Tremors: 3 Anxiety: 2 Agitation: 2 Paroxysmal Sweats: 1-Minimal Palms Moist Orientation: 0-Oriented Tacttile Disturbances: 0-None Auditory Disturbances: 0-None Visual Disturbances: 0-None Headache: 0-None Present CIWA-Ar Total Score: 9 S Progress Note (SOAP) Subjective: ambulate on hallway from room to day room "to get water myself" steady gait tolerate fluid well Objective: 08/29/18 11:22 Vital Signs Temperature 98.3 F 08/29/18 09:14 Pulse Rate 94 H 08/29/18 09:14 Respiratory Rate 20 08/29/18 09:14 Blood Pressure 138/88 08/29/18 09:14 O2 Sat by Pulse Oximetry (%) Laboratory Last Values WBC 9.2 K/mm3 (4.0-10.0) 08/27/18 10:30 RBC 4.74 M/mm3 (4.00-5.60) 08/27/18 10:30 Hgb 14.5 GM/dL (11.7-16.9) 08/27/18 10:30 Hct 43.7 % (35.4-49) 08/27/18 10:30 MCV 92.2 fl (80-96) 08/27/18 10:30 MCH 30.7 pg (25.7-33.7) 08/27/18 10:30 MCHC 33.3 g/dl (32.0-35.9) 08/27/18 10:30 RDW 14.2 % (11.9-15.9) 08/27/18 10:30 Plt Count 261 K/MM3 (134-434) 08/27/18 10:30 MPV 7.6 fl (7.5-11.1) 08/27/18 10:30 Sodium 136 mmol/L (136-145) 08/27/18 10:30 Potassium 4.4 mmol/L (3.5-5.1) 08/27/18 10:30 Chloride 102 mmol/L (98-107) 08/27/18 10:30 Carbon Dioxide 24 mmol/L (21-32) 08/27/18 10:30 Anion Gap 9 MMOL/L (8-16) 08/27/18 10:30 BUN 16 mg/dL (7-18) 08/27/18 10:30 Creatinine 1.1 mg/dL (0.55-1.3) 08/27/18 10:30 Est GFR (CKD-EPI)AfAm 99.57 08/27/18 10:30 Est GFR (CKD-EPI)NonAf 85.91 08/27/18 10:30 Random Glucose 106 mg/dL (74-106) 08/27/18 10:30 Calcium 8.7 mg/dL (8.5-10.1) 08/27/18 10:30 Total Bilirubin 1.2 mg/dL (0.2-1) H 08/27/18 10:30 AST 152 U/L (15-37) H 08/27/18 10:30 ALT 113 U/L (13-61) H 08/27/18 10:30 Alkaline Phosphatase 92 U/L (45-117) 08/27/18 10:30 Total Protein 7.4 g/dl (6.4-8.2) 08/27/18 10:30 Albumin 4.0 g/dl (3.4-5.0) 08/27/18 10:30 Urine Color Yellow 08/27/18 15:28 Urine Appearance Clear 08/27/18 15:28 Urine pH 6.5 (5.0-8.0) 08/27/18 15:28 Ur Specific [place] 1.014 (1.010-1.035) 08/27/18 15:28 Urine Protein 2+ (NEGATIVE) H 08/27/18 15:28 Urine Glucose (UA) Negative (NEGATIVE) 08/27/18 15:28 Urine Ketones Negative (NEGATIVE) 08/27/18 15:28 Urine Blood Negative (NEGATIVE) 08/27/18 15:28 Urine Nitrite Negative (NEGATIVE) 08/27/18 15:28 Urine Bilirubin Negative (NEGATIVE) 08/27/18 15:28 Urine Urobilinogen 0.2 mg/dL (0.2-1.0) 08/27/18 15:28 Ur Leukocyte Esterase Negative (NEGATIVE) 08/27/18 15:28 Urine WBC (Auto) 1 /hpf (0-5) 08/27/18 15:28 Urine RBC (Auto) 1 /hpf (0-4) 08/27/18 15:28 Urine Casts (Auto) 1 /lpf (0-8) 08/27/18 15:28 U Epithel Cells (Auto) 0.3 /HPF (0-5/HPF) 08/27/18 15:28 Urine Bacteria (Auto) 1.5 /hpf (NEGATIVE) 08/27/18 15:28 RPR Titer Nonreactive (NONREACTIVE) 08/27/18 10:30 HIV 1&2 Antibody Screen Negative 08/27/18 10:30 HIV P24 Antigen Negative 08/27/18 10:30 lab noted ast elevation Assessment: 08/29/18 11:22 withdrawal sx Plan: continue detox
[2018-08-29] MEDS: SUCRALFATE 1 GM TABLET (FP) PO SCH (14:10)
[2018-08-29] MEDS ORDERED: chlordiazePOXIDE HCL 10 MG CAPSULE PO SCH (17:00)
[2018-08-29] MEDS ORDERED: chlordiazePOXIDE HCL 10 MG CAPSULE PO PRN (17:00)
[2018-08-29] MEDS: METHOCARBAMOL 500 MG TABLET PO PRN (17:31)
[2018-08-29] MEDS: THIAMINE HCL 100 MG TABLET (FP) PO SCH (22:46)
[2018-08-29] MEDS: MELATONIN 5 MG TABLETS PO PRN (22:50)
[2018-08-30] MEDS ORDERED: LORazepam 0.5 MG TABLET PO PRN (00:01)
[2018-08-30] MEDS: METHOCARBAMOL 500 MG TABLET PO PRN ×2 (00:03→22:14)
[2018-08-30] MEDS: MAG HYDROX/AL HYDROX/SIMETH 30 ML UNIT-DOSE CUP PO PRN ×2 (01:38→17:42)
[2018-08-30] MEDS ORDERED: IBUPROFEN 400 MG TABLET (FP) PO ONE (01:41)
[2018-08-30] MEDS: LORazepam 0.5 MG TABLET PO SCH ×3 (05:18→17:41)
[2018-08-30] MEDS: RANITIDINE HCL 150 MG TABLET (FP) PO SCH ×2 (10:17→22:13)
[2018-08-30] MEDS: amLODIPine BESYLATE 5 MG TABLET (FP) PO SCH ×2 (10:17→22:13)
[2018-08-30] MEDS: PRENATAL VITAMINS W/ FOLIC ACID TABLET (FP) PO SCH (10:17)
[2018-08-30] MEDS: SUCRALFATE 1 GM TABLET (FP) PO SCH (13:20)
--- NOTE | 2018-08-30 15:31 | PN ---
S CIWA - CIWA Score Nausea/Vomitin-Mild Nausea/No Vomiting Muscle Tremors: 1-None Visible, but [place] Anxiety: 2 Agitation: 1-Slight > Activity Paroxysmal Sweats: No Perspiration Orientation: 0-Oriented Tacttile Disturbances: 0-None Auditory Disturbances: 0-None Visual Disturbances: 0-None Headache: 0-None Present CIWA-Ar Total Score: 5 BHS Progress Note (SOAP) Subjective: feeling better no longer feeling pain after meal discuss risks of alcohol related GI complications Objective: 08/30/18 15:29 Vital Signs Temperature 97.0 F L 08/30/18 14:11 Pulse Rate 95 H 08/30/18 14:11 Respiratory Rate 20 08/30/18 14:11 Blood Pressure 137/90 08/30/18 14:11 O2 Sat by Pulse Oximetry (%) Vital Signs Temperature 97.0 F L 08/30/18 14:11 Pulse Rate 95 H 08/30/18 14:11 Respiratory Rate 20 08/30/18 14:11 Blood Pressure 137/90 08/30/18 14:11 O2 Sat by Pulse Oximetry (%) Laboratory Last Values WBC 9.2 K/mm3 (4.0-10.0) 08/27/18 10:30 RBC 4.74 M/mm3 (4.00-5.60) 08/27/18 10:30 Hgb 14.5 GM/dL (11.7-16.9) 08/27/18 10:30 Hct 43.7 % (35.4-49) 08/27/18 10:30 MCV 92.2 fl (80-96) 08/27/18 10:30 MCH 30.7 pg (25.7-33.7) 08/27/18 10:30 MCHC 33.3 g/dl (32.0-35.9) 08/27/18 10:30 RDW 14.2 % (11.9-15.9) 08/27/18 10:30 Plt Count 261 K/MM3 (134-434) 08/27/18 10:30 MPV 7.6 fl (7.5-11.1) 08/27/18 10:30 Sodium 136 mmol/L (136-145) 08/27/18 10:30 Potassium 4.4 mmol/L (3.5-5.1) 08/27/18 10:30 Chloride 102 mmol/L (98-107) 08/27/18 10:30 Carbon Dioxide 24 mmol/L (21-32) 08/27/18 10:30 Anion Gap 9 MMOL/L (8-16) 08/27/18 10:30 BUN 16 mg/dL (7-18) 08/27/18 10:30 Creatinine 1.1 mg/dL (0.55-1.3) 08/27/18 10:30 Est GFR (CKD-EPI)AfAm 99.57 08/27/18 10:30 Est GFR (CKD-EPI)NonAf 85.91 08/27/18 10:30 Random Glucose 106 mg/dL (74-106) 08/27/18 10:30 Calcium 8.7 mg/dL (8.5-10.1) 08/27/18 10:30 Total Bilirubin 1.2 mg/dL (0.2-1) H 08/27/18 10:30 AST 21 U/L (15-37) 08/30/18 07:55 ALT 113 U/L (13-61) H 08/27/18 10:30 Alkaline Phosphatase 92 U/L (45-117) 08/27/18 10:30 Total Protein 7.4 g/dl (6.4-8.2) 08/27/18 10:30 Albumin 4.0 g/dl (3.4-5.0) 08/27/18 10:30 Urine Color Yellow 08/27/18 15:28 Urine Appearance Clear 08/27/18 15:28 Urine pH 6.5 (5.0-8.0) 08/27/18 15:28 Ur Specific [place] 1.014 (1.010-1.035) 08/27/18 15:28 Urine Protein 2+ (NEGATIVE) H 08/27/18 15:28 Urine Glucose (UA) Negative (NEGATIVE) 08/27/18 15:28 Urine Ketones Negative (NEGATIVE) 08/27/18 15:28 Urine Blood Negative (NEGATIVE) 08/27/18 15:28 Urine Nitrite Negative (NEGATIVE) 08/27/18 15:28 Urine Bilirubin Negative (NEGATIVE) 08/27/18 15:28 Urine Urobilinogen 0.2 mg/dL (0.2-1.0) 08/27/18 15:28 Ur Leukocyte Esterase Negative (NEGATIVE) 08/27/18 15:28 Urine WBC (Auto) 1 /hpf (0-5) 08/27/18 15:28 Urine RBC (Auto) 1 /hpf (0-4) 08/27/18 15:28 Urine Casts (Auto) 1 /lpf (0-8) 08/27/18 15:28 U Epithel Cells (Auto) 0.3 /HPF (0-5/HPF) 08/27/18 15:28 Urine Bacteria (Auto) 1.5 /hpf (NEGATIVE) 08/27/18 15:28 RPR Titer Nonreactive (NONREACTIVE) 08/27/18 10:30 HIV 1&2 Antibody Screen Negative 08/27/18 10:30 HIV P24 Antigen Negative 08/27/18 10:30 lab noted Assessment: 08/30/18 15:31 alcohol withdrawal sx Plan: continue detox
[2018-08-30] MEDS ORDERED: chlordiazePOXIDE HCL 10 MG CAPSULE PO SCH (17:00)
[2018-08-30] MEDS: THIAMINE HCL 100 MG TABLET (FP) PO SCH (22:13)
[2018-08-30] MEDS: MELATONIN 5 MG TABLETS PO PRN (22:14)
[2018-08-31] MEDS: MAG HYDROX/AL HYDROX/SIMETH 30 ML UNIT-DOSE CUP PO PRN (01:46)
[2018-08-31] MEDS ORDERED: LORazepam 0.5 MG TABLET PO ONE (06:00)
[2018-08-31 06:23] VITALS: BP 109/67; PULSE 72; TEMP 97.6
[2018-08-31] MEDS ORDERED: IBUPROFEN 400 MG TABLET (FP) PO ONE (07:11)
--- NOTE | 2018-08-31 21:32 | DS ---
[facility] Detox Discharge Summary Admission Date: 08/27/18 Discharge Date: 08/31/18 - History Present History: Alcohol Dependence Additional Comments: PATIENT LEFT DETOX UNIT BEFORE VISITOR SERVICES REPRESENTATIVE WAS ABLE TO MEET WITH HIM TO CONDUCT PRE- DISCHARGE MEDICAL ASSESSMENT. PER BANKING ASSISTANT Natalie BARRAZA, PATIENT REFERRED TO [facility] ( [place], [place]) FOR AFTERCARE. PATIENT ALSO REFERRED TO [facility]. Pertinent Past History: History Of Gastritis, History Of Pancreatitis, Depression, History Of Lower Back Pain, Elevated Liver Enzymes (While Admitted for Detox), Hyperbilirubinemia (While Admitted For Detox), History of Blindness Of Left Eye (Post-Trauma), Arthritis. - Physical Exam Results Vital Signs: Vital Signs Temperature 97.6 F 08/31/18 06:22 Pulse Rate 72 08/31/18 06:22 Respiratory Rate 18 08/31/18 06:30 Blood Pressure 109/67 08/31/18 06:22 O2 Sat by Pulse Oximetry (%) Pertinent Admission Physical Exam Findings: WITHDRAWAL SYMPTOMS. Laboratory Tests 08/27/18 08/27/18 08/27/18 10:30 10:30 10:30 WBC 9.2 RBC 4.74 Hgb 14.5 Hct 43.7 MCV 92.2 MCH 30.7 MCHC 33.3 RDW 14.2 Plt Count 261 MPV 7.6 Sodium 136 Potassium 4.4 Chloride 102 Carbon Dioxide 24 Anion Gap 9 BUN 16 Creatinine 1.1 Est GFR (CKD-EPI)AfAm 99.57 Est GFR (CKD-EPI)NonAf 85.91 Random Glucose 106 Calcium 8.7 Total Bilirubin 1.2 H AST 152 H ALT 113 H Alkaline Phosphatase 92 Total Protein 7.4 Albumin 4.0 Urine Color Urine Appearance Urine pH Ur Specific [place] Urine Protein Urine Glucose (UA) Urine Ketones Urine Blood Urine Nitrite Urine Bilirubin Urine Urobilinogen Ur Leukocyte Esterase Urine WBC (Auto) Urine RBC (Auto) Urine Casts (Auto) U Epithel Cells (Auto) Urine Bacteria (Auto) RPR Titer HIV 1&2 Antibody Screen Negative HIV P24 Antigen Negative 08/27/18 08/27/18 08/30/18 10:30 15:28 07:55 WBC RBC Hgb Hct MCV MCH MCHC RDW Plt Count MPV Sodium Potassium Chloride Carbon Dioxide Anion Gap BUN Creatinine Est GFR (CKD-EPI)AfAm Est GFR (CKD-EPI)NonAf Random Glucose Calcium Total Bilirubin AST 21 ALT Alkaline Phosphatase Total Protein Albumin Urine Color Yellow Urine Appearance Clear Urine pH 6.5 Ur Specific [place] 1.014 Urine Protein 2+ H Urine Glucose (UA) Negative Urine Ketones Negative Urine Blood Negative Urine Nitrite Negative Urine Bilirubin Negative Urine Urobilinogen 0.2 Ur Leukocyte Esterase Negative Urine WBC (Auto) 1 Urine RBC (Auto) 1 Urine Casts (Auto) 1 U Epithel Cells (Auto) 0.3 Urine Bacteria (Auto) 1.5 RPR Titer Nonreactive HIV 1&2 Antibody Screen HIV P24 Antigen LABS NOTED. - Treatment Hospital Course: Detox Protocol Followed, Detoxed Safely, Responded well, Discharged Condition Good Patient has Accepted a Rehab Referral to: PT. REFERRED TO [facility] ([place], [place]) - Medication Discharge Medications: Ambulatory Orders Acetaminophen [8Hr Arthritis Pain] 650 mg PO PRN 08/27/18 Allopurinol [Zyloprim -] 100 mg PO DAILY 08/27/18 Baclofen 10 mg PO BID 08/27/18 Diphenhydramine [Benadryl Capsule -] 50 mg PO DAILY 08/27/18 Famotidine [Pepcid -] 40 mg PO DAILY 08/27/18 Fluticasone Prop 0.05% Nasal [Flonase -] 1 - 2 spray NS DAILY 08/27/18 Folic Acid 1 mg PO DAILY 08/27/18 Multivitamin [Multiple Vitamins] 1 each PO DAILY 08/27/18 Omeprazole 20 mg PO BID 08/27/18 Ondansetron [Zofran -] 4 mg PO TID 08/27/18 Ranitidine [Zantac -] 150 mg PO BID 08/27/18 Thiamine HCl [Vitamin B1 -] 100 mg PO DAILY 08/27/18 Tramadol HCl 50 mg PO BID 08/27/18 Amlodipine Besylate [Norvasc -] 10 mg PO DAILY 08/28/18 - Diagnosis (1) Alcohol dependence with uncomplicated withdrawal Status: Acute (2) Arthritis Status: Acute (3) History of pancreatitis Status: Acute (4) Low back pain Status: Acute Qualifiers: Chronicity: chronic Back pain laterality: unspecified Sciatica presence: unspecified whether sciatica present Qualified Code(s): M54.5 - Low back pain ; G89.29 - Other chronic pain (5) Nicotine dependence Status: Acute Qualifiers: Nicotine product type: cigarettes Substance use status: uncomplicated Qualified Code(s): F17.210 - Nicotine dependence, cigarettes, uncomplicated (6) Gastritis Status: Chronic Qualifiers: Gastritis type: unspecified gastritis Chronicity: unspecified Gastritis bleeding: presence of bleeding unspecified Qualified Code(s): K29.70 - Gastritis, unspecified, without bleeding - AMA Did Patient Leave Against Medical Advice: No
== END 2018-08-31 08:55 | disposition home or self-care (01) | DRG 775 ==
LOC: YASAS 08:21 → Y3N 10:52
PROVIDERS: ADMIT Surgery; ATTEND Surgery
PROC: HZ2ZZZZ Detoxification Services for Substance Abuse Treatment (ICD-10-PCS; principal; 2018-08-27)
DX: F10.230 Alcohol dependence with withdrawal, uncomplicated (principal); F17.210 Nicotine dependence, cigarettes, uncomplicated; K29.70 Gastritis, unspecified, without bleeding; M12.9 Arthropathy, unspecified; M54.5 Low back pain; G89.29 Other chronic pain; Z87.19 Personal history of other diseases of the digestive system; Z59.0 Homelessness
CPT/HCPCS: 36415; 80053; 81003; 84450; 85027; 86593; 87389; J0735

== ENCOUNTER 2019-06-04 12:04 | Inpatient (IN) | payer OTHER ==
--- NOTE | 2019-06-04 12:49 | BHS.RME ---
Substance Use & Tx History - Substance Use History Alcohol Substance amount: 1.5 pints vodka Frequency of use: Daily Substance route: Oral Date of Last Use: 06/03/19 Cocaine (Crack) Substance amount: 1 bag Substance route: Smoking Date of Last Use: 06/04/19 (just started again after 4 years abstinence) Nicotine Substance amount: 1 pack Substance route: Smoking Date of Last Use: 06/04/19 (just started again after 4 years sobriety) Physical/Psych/Mental Status - Behavior General Behavior: Increased activity (restlessness, agitation) Eye Contact: Normal - Cooperativeness Cooperativeness: Cooperative - Thinking Thought Processes: Tight, Logical, Goal Directed - Physical Health Problems Is patient presently having any pain?: No Does patient presently have any injuries (include location): No Does patient currently have a fever: No Is patient : No CIWA Nausea/Vomitin-Mild Nausea/No Vomiting Muscle Tremors: 3 Anxiety: 3 Agitation: 3 Paroxysmal Sweats: 1-Minimal Palms Moist Orientation: 0-Oriented Tacttile Disturbances: 0-None Auditory Disturbances: 0-None Visual Disturbances: 0-None Headache: 0-None Present (drank 1 day ago and was treated at [facility] with one dose of librium) CIWA-Ar Total Score: 11
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
[2019-06-04] MEDS ORDERED: BISMUTH SUBSALICYLATE 524 MG/30 ML UD PO PRN (15:07)
[2019-06-04] MEDS ORDERED: IBUPROFEN 400 MG TABLET (FP) PO PRN (15:07)
[2019-06-04] MEDS ORDERED: METHOCARBAMOL 500 MG TABLET PO PRN (15:07)
[2019-06-04] MEDS ORDERED: chlordiazePOXIDE HCL 25 MG CAPSULE PO PRN (15:07)
[2019-06-04] MEDS ORDERED: MAGNESIUM HYDROX 2400MG/30ML ORAL SUSPENSION 30 ML CUP PO PRN (15:07)
[2019-06-04] MEDS ORDERED: hydrOXYzine PAMOATE 25 MG CAPSULE (FP) PO PRN (15:07)
[2019-06-04] MEDS ORDERED: ACETAMINOPHEN 325 MG TABLET (FP) PO PRN ×2 (15:07)
[2019-06-04] MEDS ORDERED: MAGNESIUM CITRATE 300 ML BOTTLE PO PRN (15:07)
[2019-06-04] MEDS ORDERED: MENTHOL/PHENOL 1 EACH UD MM PRN (15:07)
[2019-06-04] MEDS ORDERED: MAG HYDROX/AL HYDROX/SIMETH 30 ML UNIT-DOSE CUP PO PRN (15:07)
[2019-06-04 15:50] VITALS: BMI 27.3
[2019-06-04] MEDS: chlordiazePOXIDE HCL 25 MG CAPSULE PO SCH ×2 (16:31→22:32)
[2019-06-04] MEDS ORDERED: ONDANSETRON *ODT* 4 MG TABLET SL ONE (18:04)
--- NOTE | 2019-06-04 18:06 | PN ---
[facility] Progress Note Note: pt w/ c/o nausea Vital Signs - 24 hr 06/04/19 06/04/19 04:20 15:45 Temperature 98.2 F 98.4 F Pulse Rate 102 H 106 H Respiratory 18 18 Rate Blood Pressure 121/76 143/72 P : Ada SL x once
[2019-06-04] MEDS ORDERED: MELATONIN 5 MG TABLETS PO PRN (22:00)
[2019-06-04] MEDS: PANTOPRAZOLE 20 MG TABLET PO SCH (22:32)
[2019-06-04] MEDS: THIAMINE HCL 100 MG TABLET (FP) PO SCH (22:32)
[2019-06-05] MEDS: chlordiazePOXIDE HCL 25 MG CAPSULE PO SCH ×4 (06:07→22:36)
[2019-06-05] MEDS: PANTOPRAZOLE 20 MG TABLET PO SCH ×2 (10:39→22:36)
[2019-06-05] MEDS: PRENATAL VITAMINS W/ FOLIC ACID TABLET (FP) PO SCH (10:39)
[2019-06-05 11:02] LABS: HEMATOCRIT 38.4 % (35.4-49); HEMOGLOBIN 12.9 GM/dL (11.7-16.9); MCH 31.8 pg (25.7-33.7); MCHC 33.7 g/dl (32.0-35.9); MEAN CELL VOLUME 94.3 fl (80-96); MEAN PLT VOLUME 7.7 fl (7.5-11.1); PLATELET COUNT 252 K/MM3 (134-434); RBC 4.08 M/mm3 (4.00-5.60); RDW 15.4 % (11.9-15.9); WHITE BLOOD COUNT 2.9 K/mm3 (4.0-10.0)
[2019-06-05 11:05] LABS: ALBUMIN 3.4 g/dl (3.4-5.0); BILIRUBIN,TOTAL 0.5 mg/dL (0.2-1); BLOOD UREA NITROGEN 11.1 mg/dL (7-18); CALCIUM 8.9 mg/dL (8.5-10.1); CREATININE 0.9 mg/dL (0.55-1.3); POTASSIUM 4.2 mmol/L (3.5-5.1)
--- NOTE | 2019-06-05 11:53 | PN ---
S CIWA - CIWA Score Nausea/Vomitin-Mild Nausea/No Vomiting Muscle Tremors: 2 Anxiety: 2 Agitation: 2 Paroxysmal Sweats: No Perspiration Orientation: 0-Oriented Tacttile Disturbances: 1-Very Mild Itch/Numbness Auditory Disturbances: 0-None Visual Disturbances: 0-None Headache: 2-Mild CIWA-Ar Total Score: 10 S Progress Note (SOAP) Subjective: alert,irritable,anxious,interrupted sleep,tremor Objective: 06/05/19 11:49 Vital Signs Temperature 97.7 F 06/05/19 08:59 Pulse Rate 74 06/05/19 08:59 Respiratory Rate 18 06/05/19 08:59 Blood Pressure 152/88 06/05/19 08:59 O2 Sat by Pulse Oximetry (%) 06/05/19 11:49 Laboratory Last Values WBC 2.9 K/mm3 (4.0-10.0) L 06/05/19 08:00 RBC 4.08 M/mm3 (4.00-5.60) 06/05/19 08:00 Hgb 12.9 GM/dL (11.7-16.9) 06/05/19 08:00 Hct 38.4 % (35.4-49) 06/05/19 08:00 MCV 94.3 fl (80-96) 06/05/19 08:00 MCH 31.8 pg (25.7-33.7) 06/05/19 08:00 MCHC 33.7 g/dl (32.0-35.9) 06/05/19 08:00 RDW 15.4 % (11.9-15.9) 06/05/19 08:00 Plt Count 252 K/MM3 (134-434) 06/05/19 08:00 MPV 7.7 fl (7.5-11.1) 06/05/19 08:00 Sodium 136 mmol/L (136-145) 06/05/19 08:00 Potassium 4.2 mmol/L (3.5-5.1) 06/05/19 08:00 Chloride 103 mmol/L (98-107) 06/05/19 08:00 Carbon Dioxide 27 mmol/L (21-32) 06/05/19 08:00 Anion Gap 6 MMOL/L (8-16) L 06/05/19 08:00 BUN 11.1 mg/dL (7-18) 06/05/19 08:00 Creatinine 0.9 mg/dL (0.55-1.3) 06/05/19 08:00 Est GFR (CKD-EPI)AfAm 126.90 06/05/19 08:00 Est GFR (CKD-EPI)NonAf 109.49 06/05/19 08:00 Random Glucose 84 mg/dL (74-106) 06/05/19 08:00 Calcium 8.9 mg/dL (8.5-10.1) 06/05/19 08:00 Total Bilirubin 0.5 mg/dL (0.2-1) 06/05/19 08:00 AST 49 U/L (15-37) H 06/05/19 08:00 ALT 55 U/L (13-61) 06/05/19 08:00 Alkaline Phosphatase 95 U/L (45-117) 06/05/19 08:00 Total Protein 7.0 g/dl (6.4-8.2) 06/05/19 08:00 Albumin 3.4 g/dl (3.4-5.0) 06/05/19 08:00 Assessment: 06/05/19 11:50 withdrawal symptom Plan: continue detox librium ,wbc 2,900,posible form alcoholism,will repeat cbc in am
--- NOTE | 2019-06-05 13:51 | PN ---
Teaching Attending Note Name of Resident: Angel Luis Montenegro ATTENDING PHYSICIAN STATEMENT I saw and evaluated the patient. I reviewed the resident's note and discussed the case with the resident. I agree with the resident's findings and plan as documented. SUBJECTIVE: OBJECTIVE: ASSESSMENT AND PLAN:
--- NOTE | 2019-06-05 15:04 | CONSULT ---
[facility] Psychiatric Consult - Data Date of interview: 06/05/19 Admission source: Self-referred Identifying data: Mr Jc is a 38 years old single male, father of 4 children, unemployed receiving public assistance, homeless living in the custodial seeking detox treatment for alcohol, cocaine and cannabis Substance Abuse History: Reports history of alcohol, crack cocaine and marijuana use. Refer to addiction counselor's summary for further information Medical History: Significant for gastritis, arthritis, chronic lower back pain, left eye blindness and history of pancreatitis. Smokes 6 cigarettes daily Psychiatric History: Denies history of previous psyciatric treatment. However, reports feeling depressed and sleeping poorly Physical/Sexual Abuse/Trauma History: Denies history of abuse as a child or DV relationship as an adult Mental Status Exam - Mental Status Exam Alert and Oriented to: Time, Place Cognitive Function: Fair Patient Appearance: Disheveled Mood: Depressed Affect: Appropriate Patient Behavior: Cooperative Speech Pattern: Clear Voice Loudness: Normal Thought Process: Intact Hallucinations: Denies Suicidal Ideation: Denies Homicidal Ideation: Denies Sleep: Poorly Appetite: Poor Muscle strength/Tone: Normal Gait/Station: Normal Psychiatric Findings - Problem List ([place] 1, 2,3) (1) Substance induced mood disorder Current Visit: Yes Status: Acute (2) Substance-induced sleep disorder Current Visit: Yes Status: Acute (3) Alcohol dependence with uncomplicated withdrawal Current Visit: No Status: Acute (4) Cocaine dependence Current Visit: Yes Status: Acute (5) Cannabis abuse Current Visit: Yes Status: Acute (6) Nicotine dependence Current Visit: No Status: Chronic Qualifiers: Nicotine product type: cigarettes Substance use status: uncomplicated Qualified Code(s): F17.210 - Nicotine dependence, cigarettes, uncomplicated (7) Arthritis Current Visit: No Status: Chronic (8) Low back pain Current Visit: No Status: Acute Qualifiers: Chronicity: chronic Back pain laterality: unspecified Sciatica presence: unspecified whether sciatica present Qualified Code(s): M54.5 - Low back pain ; G89.29 - Other chronic pain (9) Gastritis Current Visit: No Status: Chronic Qualifiers: Gastritis type: unspecified gastritis Chronicity: unspecified Gastritis bleeding: presence of bleeding unspecified Qualified Code(s): K29.70 - Gastritis, unspecified, without bleeding (10) Pancreatitis Current Visit: No Status: Resolved Qualifiers: Chronicity: acute Pancreatitis type: alcohol induced Acute pancreatitis complication: unspecified Qualified Code(s): K85.20 - Alcohol induced acute pancreatitis without necrosis or infection - Initial Treatment Plan Initial Treatment Plan: 1) Start Melatonin 5 mg po HS prn for insomnia. 2) Continue inpatient detoxification
[2019-06-05] MEDS: THIAMINE HCL 100 MG TABLET (FP) PO SCH (22:36)
[2019-06-06] MEDS: chlordiazePOXIDE HCL 25 MG CAPSULE PO SCH ×4 (06:16→22:15)
[2019-06-06 10:03] LABS: HEMATOCRIT 38.2 % (35.4-49); HEMOGLOBIN 12.7 GM/dL (11.7-16.9); MCH 31.6 pg (25.7-33.7); MCHC 33.2 g/dl (32.0-35.9); MEAN CELL VOLUME 95.1 fl (80-96); MEAN PLT VOLUME 7.8 fl (7.5-11.1); PLATELET COUNT 245 K/MM3 (134-434); RBC 4.02 M/mm3 (4.00-5.60); RDW 15.9 % (11.9-15.9); WHITE BLOOD COUNT 5.2 K/mm3 (4.0-10.0)
--- NOTE | 2019-06-06 10:15 | PN ---
S CIWA - CIWA Score Nausea/Vomitin-Mild Nausea/No Vomiting Muscle Tremors: 2 Anxiety: 2 Agitation: 2 Paroxysmal Sweats: No Perspiration Orientation: 0-Oriented Tacttile Disturbances: 0-None Auditory Disturbances: 0-None Visual Disturbances: 0-None Headache: 2-Mild CIWA-Ar Total Score: 9 S Progress Note (SOAP) Subjective: alert,irritable,anxious,interrupted sleep,tremor Objective: 06/06/19 10:14 Vital Signs Temperature 97.7 F 06/06/19 05:53 Pulse Rate 66 06/06/19 05:53 Respiratory Rate 18 06/06/19 05:53 Blood Pressure 117/68 06/06/19 05:53 O2 Sat by Pulse Oximetry (%) 06/06/19 10:15 Laboratory Last Values WBC 5.2 K/mm3 (4.0-10.0) 06/06/19 07:40 RBC 4.02 M/mm3 (4.00-5.60) 06/06/19 07:40 Hgb 12.7 GM/dL (11.7-16.9) 06/06/19 07:40 Hct 38.2 % (35.4-49) 06/06/19 07:40 MCV 95.1 fl (80-96) 06/06/19 07:40 MCH 31.6 pg (25.7-33.7) 06/06/19 07:40 MCHC 33.2 g/dl (32.0-35.9) 06/06/19 07:40 RDW 15.9 % (11.9-15.9) 06/06/19 07:40 Plt Count 245 K/MM3 (134-434) 06/06/19 07:40 MPV 7.8 fl (7.5-11.1) 06/06/19 07:40 Sodium 136 mmol/L (136-145) 06/05/19 08:00 Potassium 4.2 mmol/L (3.5-5.1) 06/05/19 08:00 Chloride 103 mmol/L (98-107) 06/05/19 08:00 Carbon Dioxide 27 mmol/L (21-32) 06/05/19 08:00 Anion Gap 6 MMOL/L (8-16) L 06/05/19 08:00 BUN 11.1 mg/dL (7-18) 06/05/19 08:00 Creatinine 0.9 mg/dL (0.55-1.3) 06/05/19 08:00 Est GFR (CKD-EPI)AfAm 126.90 06/05/19 08:00 Est GFR (CKD-EPI)NonAf 109.49 06/05/19 08:00 Random Glucose 84 mg/dL (74-106) 06/05/19 08:00 Calcium 8.9 mg/dL (8.5-10.1) 06/05/19 08:00 Total Bilirubin 0.5 mg/dL (0.2-1) 06/05/19 08:00 AST 49 U/L (15-37) H 06/05/19 08:00 ALT 55 U/L (13-61) 06/05/19 08:00 Alkaline Phosphatase 95 U/L (45-117) 06/05/19 08:00 Total Protein 7.0 g/dl (6.4-8.2) 06/05/19 08:00 Albumin 3.4 g/dl (3.4-5.0) 06/05/19 08:00 RPR Titer Nonreactive (NONREACTIVE) 06/05/19 08:00 Assessment: 06/06/19 10:15 withdrawal symptom Plan: continue detox librium regimen
[2019-06-06] MEDS: PANTOPRAZOLE 20 MG TABLET PO SCH ×2 (11:27→22:15)
[2019-06-06] MEDS: PRENATAL VITAMINS W/ FOLIC ACID TABLET (FP) PO SCH (11:27)
[2019-06-06] MEDS: THIAMINE HCL 100 MG TABLET (FP) PO SCH (22:15)
[2019-06-07] MEDS ORDERED: chlordiazePOXIDE HCL 10 MG CAPSULE PO PRN
[2019-06-07] MEDS: chlordiazePOXIDE HCL 10 MG CAPSULE PO SCH ×2 (05:18→10:36)
[2019-06-07 09:59] VITALS: BP 136/86; PULSE 79; TEMP 97.9
--- NOTE | 2019-06-07 10:11 | PN ---
[facility] CIWA - CIWA Score Nausea/Vomitin-Mild Nausea/No Vomiting Muscle Tremors: 2 Anxiety: 2 Agitation: 2 Paroxysmal Sweats: No Perspiration Orientation: 0-Oriented Tacttile Disturbances: 1-Very Mild Itch/Numbness Auditory Disturbances: 0-None Visual Disturbances: 0-None Headache: 1-Very Mild CIWA-Ar Total Score: 9 [facility] Progress Note (SOAP) Subjective: alert,irritable,anxious,interrupted sleep,tremor Objective: 06/07/19 10:11 Vital Signs Temperature 97.9 F 06/07/19 09:10 Pulse Rate 79 06/07/19 09:10 Respiratory Rate 18 06/07/19 09:10 Blood Pressure 136/86 06/07/19 09:10 O2 Sat by Pulse Oximetry (%) Assessment: 06/07/19 10:11 withdrawal symptom Plan: continue detox librium regimen
[2019-06-07] MEDS: PRENATAL VITAMINS W/ FOLIC ACID TABLET (FP) PO SCH (10:35)
[2019-06-07] MEDS: PANTOPRAZOLE 20 MG TABLET PO SCH (10:36)
--- NOTE | 2019-06-07 14:15 | PN ---
[facility] Progress Note Note: patient does not wantt o complete treatment,all attempts to convince patient to stay with no avail,the risks advise to call 911 if not feeling wellof relapsing explained,patient understood,signed release ama,
--- NOTE | 2019-06-07 14:23 | DS ---
[facility] Detox Discharge Summary Admission Date: 06/04/19 Discharge Date: 06/07/19 - History Present History: Alcohol Dependence, Cannabis Dependence, Cocaine Dependence Additional Comments: alert,oriented x 3 heart normal heart sound,s1s2 lung clear,no wheezing no abdominal pain observe ambulating on the unit the risk of relapsing explained and understood, patient singed release ama advise to call 911 if not feeling well time of discharge 30 mins Pertinent Past History: arthritis pancreatitis - Physical Exam Results Vital Signs: Vital Signs Temperature 97.9 F 06/07/19 12:31 Pulse Rate 79 06/07/19 12:31 Respiratory Rate 18 06/07/19 12:31 Blood Pressure 136/86 06/07/19 12:31 O2 Sat by Pulse Oximetry (%) Pertinent Admission Physical Exam Findings: withdrawal signs and symptom - Medication Discharge Medications: Ambulatory Orders Acetaminophen [8Hr Arthritis Pain] 650 mg PO PRN 08/27/18 Allopurinol [Zyloprim -] 100 mg PO BID 08/27/18 Baclofen 10 mg PO Q8H 08/27/18 Folic Acid 1 mg PO DAILY 08/27/18 Multivitamin [Multiple Vitamins] 1 each PO DAILY 08/27/18 Thiamine HCl [Vitamin B1 -] 100 mg PO DAILY 08/27/18 Gabapentin [Neurontin -] 300 mg PO Q8H 06/04/19 Pantoprazole Sodium [Protonix] 40 mg PO DAILY 06/04/19 - Diagnosis (1) Cannabis abuse Current Visit: Yes Status: Acute (2) Cocaine dependence Current Visit: Yes Status: Acute (3) Alcohol dependence with uncomplicated withdrawal Current Visit: No Status: Acute (4) History of pancreatitis Current Visit: No Status: Acute (5) GERD (gastroesophageal reflux disease) Current Visit: Yes Status: Acute - AMA Did Patient Leave Against Medical Advice: Yes
[2019-06-08] MEDS ORDERED: chlordiazePOXIDE HCL 10 MG CAPSULE PO SCH (05:00)
[2019-06-09] MEDS ORDERED: chlordiazePOXIDE HCL 10 MG CAPSULE PO ONE (05:00)
== END 2019-06-07 15:34 | disposition left against medical advice (07) | DRG 770 ==
LOC: YASAS 12:04 → Y6N 15:52
PROVIDERS: ADMIT Allergy & Immunology; ATTEND Allergy & Immunology
PROC: HZ2ZZZZ Detoxification Services for Substance Abuse Treatment (ICD-10-PCS; principal; 2019-06-04)
DX: F10.230 Alcohol dependence with withdrawal, uncomplicated (principal); F14.20 Cocaine dependence, uncomplicated; F12.10 Cannabis abuse, uncomplicated; F17.210 Nicotine dependence, cigarettes, uncomplicated; F19.282 Other psychoactive substance dependence with psychoactive substance-induced sleep disorder; F19.24 Other psychoactive substance dependence with psychoactive substance-induced mood disorder; G40.509 Epileptic seizures related to external causes, not intractable, without status epilepticus; K29.70 Gastritis, unspecified, without bleeding; H54.62 Unqualified visual loss, left eye, normal vision right eye; K21.9 Gastro-esophageal reflux disease without esophagitis; M12.9 Arthropathy, unspecified; M54.5 Low back pain; G89.29 Other chronic pain; Z87.19 Personal history of other diseases of the digestive system
CPT/HCPCS: 36415; 71046-TC-FY; 80053; 85027; 86593; Q0162

== ENCOUNTER 2020-05-08 14:11 | Inpatient (IN) | payer OTHER ==
[2020-05-08 16:14] VITALS: BMI 26.2
[2020-05-08] MEDS ORDERED: MAG HYDROX/AL HYDROX/SIMETH 30 ML UNIT-DOSE CUP PO PRN (17:28)
[2020-05-08] MEDS ORDERED: MENTHOL/PHENOL 1 EACH UD MM PRN (17:28)
[2020-05-08] MEDS ORDERED: MAGNESIUM CITRATE 300 ML BOTTLE PO PRN (17:28)
[2020-05-08] MEDS ORDERED: IBUPROFEN 400 MG TABLET (FP) PO PRN (17:28)
[2020-05-08] MEDS ORDERED: MAGNESIUM HYDROX 2400MG/30ML ORAL SUSPENSION 30 ML CUP PO PRN (17:28)
[2020-05-08] MEDS ORDERED: BISMUTH SUBSALICYLATE 524 MG/30 ML UD PO PRN (17:28)
[2020-05-08] MEDS ORDERED: ACETAMINOPHEN 325 MG TABLET (FP) PO PRN ×2 (17:28)
[2020-05-08] MEDS ORDERED: ONDANSETRON *ODT* 4 MG TABLET SL PRN (17:28)
[2020-05-08] MEDS: chlordiazePOXIDE HCL 25 MG CAPSULE PO PRN (19:27)
[2020-05-08] MEDS: chlordiazePOXIDE HCL 25 MG CAPSULE PO SCH (22:36)
[2020-05-08] MEDS: MELATONIN 5 MG TABLETS PO SCH (22:37)
[2020-05-08] MEDS: THIAMINE HCL 100 MG TABLET (FP) PO SCH (22:37)
[2020-05-09] MEDS: chlordiazePOXIDE HCL 25 MG CAPSULE PO SCH ×4 (05:39→22:46)
[2020-05-09] MEDS: PRENATAL VITAMINS W/ FOLIC ACID TABLET (FP) PO SCH (10:41)
[2020-05-09] MEDS: METHOCARBAMOL 500 MG TABLET PO PRN (10:44)
[2020-05-09 11:58] LABS: HEMATOCRIT 40.1 % (35.4-49); HEMOGLOBIN 13.7 GM/dL (11.7-16.9); MCH 32.2 pg (25.7-33.7); MCHC 34.1 g/dl (32.0-35.9); MEAN CELL VOLUME 94.2 fl (80-96); MEAN PLT VOLUME 8.4 fl (7.5-11.1); PLATELET COUNT 254 K/MM3 (134-434); RBC 4.26 M/mm3 (4.00-5.60); RDW 16.2 % (11.9-15.9); WHITE BLOOD COUNT 2.3 K/mm3 (4.0-10.0)
[2020-05-09 12:03] LABS: POTASSIUM 3.7 mmol/L (3.5-5.1)
[2020-05-09 12:11] LABS: ALBUMIN 3.8 g/dl (3.4-5.0); CALCIUM 9.4 mg/dL (8.5-10.1)
[2020-05-09 12:13] LABS: BLOOD UREA NITROGEN 14.1 mg/dL (7-18)
[2020-05-09 12:14] LABS: CREATININE 0.9 mg/dL (0.55-1.3)
[2020-05-09 12:15] LABS: TOT PROT 7.5 g/dl (6.4-8.2)
[2020-05-09] MEDS: chlordiazePOXIDE HCL 25 MG CAPSULE PO PRN (15:08)
[2020-05-09] MEDS: MELATONIN 5 MG TABLETS PO SCH (22:47)
[2020-05-09] MEDS: THIAMINE HCL 100 MG TABLET (FP) PO SCH (22:47)
[2020-05-10] MEDS: chlordiazePOXIDE HCL 25 MG CAPSULE PO SCH ×4 (06:16→22:27)
[2020-05-10] MEDS: hydrOXYzine PAMOATE 25 MG CAPSULE (FP) PO PRN ×3 (10:02→22:26)
[2020-05-10] MEDS: METHOCARBAMOL 500 MG TABLET PO PRN (10:02)
[2020-05-10] MEDS: PRENATAL VITAMINS W/ FOLIC ACID TABLET (FP) PO SCH (10:03)
[2020-05-10] MEDS: THIAMINE HCL 100 MG TABLET (FP) PO SCH (22:26)
[2020-05-10] MEDS: MELATONIN 5 MG TABLETS PO SCH (22:28)
[2020-05-11] MEDS ORDERED: chlordiazePOXIDE HCL 10 MG CAPSULE PO PRN
[2020-05-11] MEDS: chlordiazePOXIDE HCL 10 MG CAPSULE PO SCH ×4 (06:57→22:18)
[2020-05-11] MEDS: hydrOXYzine PAMOATE 25 MG CAPSULE (FP) PO PRN (10:31)
[2020-05-11] MEDS: PRENATAL VITAMINS W/ FOLIC ACID TABLET (FP) PO SCH (10:31)
[2020-05-11 11:02] LABS: EOS % 2.3 % (0-4.5); HEMATOCRIT 40.3 % (35.4-49); HEMOGLOBIN 13.7 GM/dL (11.7-16.9); MCH 31.8 pg (25.7-33.7); MCHC 33.9 g/dl (32.0-35.9); MEAN CELL VOLUME 93.7 fl (80-96); MEAN PLT VOLUME 8.3 fl (7.5-11.1); MONO % 15.4 % (3.8-10.2); NEUT % 46.3 % (42.8-82.8); PLATELET COUNT 257 K/MM3 (134-434); RDW 15.5 % (11.9-15.9); WHITE BLOOD COUNT 3.5 K/mm3 (4.0-10.0)
[2020-05-11] MEDS: THIAMINE HCL 100 MG TABLET (FP) PO SCH (22:18)
[2020-05-11] MEDS: MELATONIN 5 MG TABLETS PO SCH (22:19)
[2020-05-11] MEDS: METHOCARBAMOL 500 MG TABLET PO PRN (22:20)
[2020-05-12] MEDS: chlordiazePOXIDE HCL 10 MG CAPSULE PO SCH ×2 (05:27→17:37)
[2020-05-12] MEDS: hydrOXYzine PAMOATE 25 MG CAPSULE (FP) PO PRN (05:28)
[2020-05-12] MEDS: PRENATAL VITAMINS W/ FOLIC ACID TABLET (FP) PO SCH (10:23)
[2020-05-12] MEDS ORDERED: MASKS NR ONE (15:40)
[2020-05-12] MEDS: THIAMINE HCL 100 MG TABLET (FP) PO SCH (22:00)
[2020-05-12] MEDS: MELATONIN 5 MG TABLETS PO SCH (22:00)
[2020-05-13] MEDS ORDERED: chlordiazePOXIDE HCL 10 MG CAPSULE PO ONE (05:00)
[2020-05-13 09:18] VITALS: BP 139/91; PULSE 102; TEMP 97.5
[2020-05-13] MEDS: PRENATAL VITAMINS W/ FOLIC ACID TABLET (FP) PO SCH (09:47)
== END 2020-05-13 09:51 | disposition home or self-care (01) | DRG 774 ==
LOC: YASAS 14:11 → Y6N 16:45
PROVIDERS: ADMIT Allergy & Immunology; ATTEND Allergy & Immunology
PROC: HZ2ZZZZ Detoxification Services for Substance Abuse Treatment (ICD-10-PCS; principal; 2020-05-08)
DX: F10.230 Alcohol dependence with withdrawal, uncomplicated (principal); F14.20 Cocaine dependence, uncomplicated; F12.20 Cannabis dependence, uncomplicated; F17.210 Nicotine dependence, cigarettes, uncomplicated; K86.0 Alcohol-induced chronic pancreatitis; K86.81 Exocrine pancreatic insufficiency; D72.819 Decreased white blood cell count, unspecified; K29.70 Gastritis, unspecified, without bleeding; K21.9 Gastro-esophageal reflux disease without esophagitis; M54.5 Low back pain; G89.29 Other chronic pain; R74.01 Elevation of levels of liver transaminase levels
CPT/HCPCS: 36415; 80053; 85025; 85027; 86780; 93005; 93010; C9803; U0003